=== PATIENT | male | born 1955 | race African-American/Black ===

== ENCOUNTER 2017-04-18 08:56 | Emergency (ER) | payer MEDICAID ==
[~2017-04-18] VITALS: Ht 185.4 cm; Wt 90.7 kg
[2017-04-18] MEDS ORDERED: LIDOCAINE 2% JELLY 11ml (GLYDO) ONE (09:52)
[2017-04-18] MEDS ORDERED: LIDOCAINE 2% JELLY 11ml (GLYDO) UR ONE (10:45)
[2017-04-18 11:51] VITALS: BP 131/76
== END 2017-04-18 12:29 | disposition home or self-care (01) ==
LOC: ER 08:56 → EDBD 08:56 → ER 12:29
DX: T83.011A Breakdown (mechanical) of indwelling urethral catheter, initial encounter (principal); E78.5 Hyperlipidemia, unspecified; I10 Essential (primary) hypertension; H54.8 Legal blindness, as defined in USA; Z87.891 Personal history of nicotine dependence; X58.XXXA Exposure to other specified factors, initial encounter
CPT/HCPCS: 51702